=== PATIENT | male | born 1980 | race Caucasian/White ===

== ENCOUNTER 2023-07-17 09:52 | Emergency (ER) | payer OTHER, SELFPAY ==
[2023-07-17 09:56] VITALS: BP 123/92; PULSE 56; RESP 18; TEMP 36.4; O2SAT 99; BMI 26.9
--- NOTE | 2023-07-17 10:00 | XR_ITS ---
[facility] [id number] Patient Name: RAMA AQUINO MRN: [id number] date: 1980 Sex: M Assigned Patient Location: ER Current Patient Location: ER Accession/Order Number: [id number] Exam Date: 07/17/2023 10:05 Report Date: 07/17/2023 10:40 At the request of: MAURICE BRAGA Procedure: XR ankle RT min 3V STUDY: XR ankle RT min 3V, [id number] HISTORY: injury COMPARISON: None FINDINGS: No acute fracture, dislocation, or suspicious osseous lesion. No significant degenerative changes. No lucent lesion of the talar dome. XR/XR ankle RT min 3V IMPRESSION: No acute osseous abnormality. Electronically authenticated by: MARLYS ADORNO Date: 07/17/2023 10:40
--- NOTE | 2023-07-17 10:02 | ED.EXTPRO1 ---
HPI - Extremity Problem General Chief complaint: Extremity Injury, Lower Stated complaint: LOWER EXTREMITY INJURY RIGHT ANKLE Time Seen by Provider: 07/17/23 09:57 Source: patient Mode of arrival: walk-in History of Present Illness HPI Narrative: 42-year-old male presents to the emergency department for injury to his right ankle. He points to the right lateral malleolus. He twisted it lasts night when he was on the sideline of the football game and a player collided with him. No other injury was sustained. No pain in the foot or knee. The pain is moderate and worse when he walks. Related Data Home Medications Medication Instructions Recorded Confirmed No Known Home Medications 07/17/23 07/17/23 Allergies Allergy/AdvReac Type Severity Reaction Status Date / Time No Known Drug Allergies Allergy Verified 07/17/23 09:56 Review of Systems ROS Narrative A ten point review of systems is negative except as noted above. PFSH PFS Social History Smoking status: Never smoker Exam Narrative Exam Narrative: Nurses note and vital signs reviewed and patient is not hypoxic. General: The patient appears well and in no apparent distress. Patient is resting comfortably on cart. Skin: Warm, dry, no pallor noted. There is no rash noted. Head: Normocephalic, atraumatic Eye: Normal conjunctiva, no drainage Ears, Nose, Mouth, and Throat: oral mucosa is moist. Nares patent. Cardiovascular: Regular Rate and Rhythm Respiratory: Patient is in no distress, no accessory muscle use Back: non-tender, no CVA tenderness bilaterally to percussion. GI: soft and nontender Musculoskeletal: he has mild swelling over the right lateral malleolus, skin intact. No tenderness in the foot including the 5th metatarsal area. Knee nontender. Neurological: A&O, normal speech Psychiatric: Cooperative Constitutional Vital Signs, click to edit/add: Last Vital Signs Temp 97.6 F 07/17/23 09:56 Pulse 56 L 07/17/23 09:56 Resp 18 07/17/23 09:56 BP 123/92 H 07/17/23 09:56 Pulse Ox 99 07/17/23 09:56 O2 Del Method Room Air 07/17/23 09:56 Course Vital Signs Vital signs: Vital Signs Temperature 97.6 F 07/17/23 09:56 Pulse Rate 56 L 07/17/23 09:56 Respiratory Rate 18 07/17/23 09:56 Blood Pressure 123/92 H 07/17/23 09:56 Pulse Oximetry 99 07/17/23 09:56 Oxygen Delivery Method Room Air 07/17/23 09:56 Temperature 97.6 F 07/17/23 09:56 Pulse Rate 56 L 07/17/23 09:56 Respiratory Rate 18 07/17/23 09:56 Blood Pressure 123/92 H 07/17/23 09:56 Pulse Oximetry 99 07/17/23 09:56 Oxygen Delivery Method Room Air 07/17/23 09:56 MDM - Extremity (Nontraumatic) MDM Narrative Medical decision making narrative: x-ray per radiologist shows no acute findings. Nate wrap and air splint applied, application checked by me and found be appropriate, he is neurovascularly intact. He has crutches at home if he needs them. Treatment diagnosis and follow-up were discussed with the patient. Differential Diagnosis Differential diagnosis: Likely other (ankle sprain, ankle fracture) Imaging Data ankle x-ray: Radiologist's impression: Procedure: XR ankle RT min 3V STUDY: XR ankle RT min 3V, [id number] HISTORY: injury COMPARISON: None FINDINGS: No acute fracture, dislocation, or suspicious osseous lesion. No significant degenerative changes. No lucent lesion of the talar dome. IMPRESSION: No acute osseous abnormality. Electronically authenticated by: MARLYS ADORNO Date: 07/17/2023 10:40 Discharge Plan Discharge Chief Complaint: Extremity Injury, Lower Clinical Impression: Ankle sprain Patient Disposition: Home, Self-Care Time of Disposition Decision: 10:49 Condition: Good Mode of Transportation: Private Vehicle Prescriptions / Home Meds: No Action No Known Home Medications Instructions: Ankle Sprain (ED), Ankle Stirrup Splint (ED) Stand Alone Forms: Portal Instructions Referrals: GURPREET LAZO [Primary Care Provider] - 1 week
== END 2023-07-17 10:58 | disposition home or self-care (01) ==
PROVIDERS: Emergency Provider Emergency Medicine; PCP Family Medicine
DX: S93.401A Sprain of unspecified ligament of right ankle, initial encounter (principal); X50.1XXA Overexertion from prolonged static or awkward postures, initial encounter; Y93.61 Activity, american tackle football
CPT/HCPCS: 73610; 99283

== ENCOUNTER 2024-12-29 09:50 | Emergency (ER) | payer OTHER, SELFPAY ==
[2024-12-29 09:54] VITALS: BP 140/83; PULSE 71; TEMP 36.6; O2SAT 100; BMI 25.1
--- NOTE | 2024-12-29 10:07 | ED.ABDPAIN1 ---
HPI - Abdominal Pain General Chief Complaint: Abdominal Pain Stated Complaint: abdominal pain Time Seen by Provider: 12/29/24 09:57 Source: patient Mode of arrival: walk-in Limitations: no limitations History of Present Illness HPI narrative: The patient is a 44-year-old male who have no significant known past medical history, to the ER with almost 7 days history of having epigastric discomfort, the patient denies any nausea at the moment but he did had some episodes of nausea throughout the last few days, pain is not radiating with mostly epigastric to the mid abdomen and it is crampy-like. The patient mentioned that he has been using some ibuprofen and Tylenol for the last few days because he thinks that will help him control the pain, but also has been exposed to his son who had viral illness symptoms No diarrhea although he did mention that his stool today with little bit loose Related Data Previous Rx's ?Medication ?Instructions ?Recorded famotidine 20 mg tablet (Pepcid) 20 mg PO BID #10 tabs 12/29/24 pantoprazole 40 mg tablet,delayed 40 mg PO DAILY 4 weeks #28 tabs 12/29/24 release (Protonix) sucralfate 100 mg/mL oral 1 g (10 mL) PO TID 7 days #210 mL 12/29/24 suspension Allergies Allergy/AdvReac Type Severity Reaction Status Date / Time No Known Drug Allergies Allergy Verified 12/29/24 09:56 Review of Systems ROS Status of ROS 10 or more systems reviewed and unremarkable except as noted in history and below [facility] Medical History (Updated 12/29/24 @ 11:18 by Verónica Ramsay MD) No active medical problems Social History Smoking status: Never smoker Little interest or pleasure in doing things: not at all Feeling down, depressed, or hopeless: not at all Exam Narrative Exam Narrative: Nurses notes and vital signs reviewed and patient is not hypoxic. General: Well-appearing and in no apparent distress. Skin: Warm, dry, no pallor noted. No rash. Head: Normocephalic, atraumatic. Neck: Supple, non-tender. Eye: Pupils are equal, round and EOMI. No scleral icterus. Ears, Nose, Mouth, and Throat: TM are clear, no nasal mucosal hypertrophy. Oral mucosa is moist, no posterior oropharynx erythema, uvula is mid-line Cardiovascular: Regular Rate and Rhythm without murmur, gallop or rub. Respiratory: No accessory muscle use or respiratory distress. Lungs are clear to auscultation, no wheezing, rales or rhonchi Chest Wall: no tenderness Back: No midline thoracic or lumbar vertebral tenderness. No CVA tenderness Musculoskeletal: normal ROM, no calf or popliteal tenderness, no lower extremity edema/swelling GI: Abdomen is soft, non-distended. Normal bowel sounds. No masses appreciated. Constitutional Vital Signs, click to edit/add: Last Vital Signs Temp 98 F 12/29/24 09:54 Pulse 66 12/29/24 11:36 Resp 18 12/29/24 11:36 BP 136/83 12/29/24 11:36 Pulse Ox 100 12/29/24 11:36 O2 Del Method Room Air 12/29/24 11:36 Course Vital Signs Vital signs: Vital Signs Temperature 98 F 12/29/24 09:54 Pulse Rate 71 12/29/24 09:54 Respiratory Rate 20 12/29/24 09:54 Blood Pressure 140/83 12/29/24 09:54 Pulse Oximetry 100 12/29/24 09:54 Oxygen Delivery Method Room Air 12/29/24 09:54 Temperature 98 F 12/29/24 09:54 Pulse Rate 66 12/29/24 11:36 Respiratory Rate 18 12/29/24 11:36 Blood Pressure 136/83 12/29/24 11:36 Pulse Oximetry 100 12/29/24 11:36 Oxygen Delivery Method Room Air 12/29/24 11:36 MDM - Abdominal Pain MDM Narrative Medical decision making narrative: The patient CBC and chemistry showed no acute pathology His presentation mostly second to gastritis he was instructed about soft liquid diet for the next few days Pepcid and Protonix started The patient also was started on sucralfate He was instructed about the importance of avoiding using NSAIDs right now Patient referred to GI as outpatient The patient is to follow up with primary care physician in next 2-3 days or to return to the emergency department should any of the signs or symptoms worsen or new symptoms develop. The patient agrees with the following Diagnosis and Treatment plan and the patient will be discharged home. Lab Data Labs: Lab Results 12/29/24 12/29/24 Range/Units 10:13 10:15 WBC 7.3 (4.0-11.0) 10^3/uL RBC 4.98 (4.70-6.10) 10^6/uL Hgb 15.9 (14.0-18.0) g/dL Hct 44.5 (42.0-54.0) % MCV 89.4 (80.0-94.0) fL MCH 31.9 (25.9-34.0) pg MCHC 35.7 H (29.9-35.2) g/dL RDW 11.0 (11.0-15.0) % Plt Count 206 (150-450) 10^3/uL MPV 9.6 (9.5-13.5) fL Neut % (Auto) 75.1 H (43.0-75.0) % Lymph % (Auto) 16.1 L (20.5-60.0) % [place] % (Auto) 7.5 (1.7-12.0) % Eos % (Auto) 0.7 L (0.9-7.0) % Baso % (Auto) 0.3 (0.2-2.0) % Neut # (Auto) 5.5 (1.4-6.5) 10^3/uL Lymph # (Auto) 1.2 (1.2-3.8) 10^3/uL [place] # (Auto) 0.6 (0.3-0.8) 10^3/uL Eos # (Auto) 0.1 (0.0-0.7) 10^3/uL Baso # (Auto) 0.0 (0.0-0.1) 10^3/uL Abs Immat Gran (auto) 0.02 (0.00-0.03) 10^3/uL Imm/Tot Granulo (auto) 0.3 (0.0-0.5) % Sodium 138 (136-145) mmol/L Potassium 4.3 (3.5-5.1) mmol/L Chloride 102 (98-107) mmol/L Carbon Dioxide 25.8 (21.0-32.0) mmol/L Anion Gap 14.5 BUN 16.0 (7.0-18.0) mg/dL Creatinine 0.89 (0.70-1.30) mg/dL Est GFR ( Amer) >60 (>=60 mL/min/1.73m^2) Est GFR (Non-Af Amer) >60 (>=60 mL/min/1.73m^2) BUN/Creatinine Ratio 18.0 Glucose 90 (74-106) mg/dL Calcium 9.2 (8.5-10.1) mg/dL Total Bilirubin 0.6 (0.2-1.0) mg/dL AST 28 (15-37) U/L ALT 27 (16-63) U/L Alkaline Phosphatase 67 (46-116) U/L Total Protein 7.6 (6.4-8.2) g/dL Albumin 3.7 (3.4-5.0) g/dL Globulin 3.9 g/dL Albumin/Globulin Ratio 0.9 Lipase 29.0 (16.0-77.0) U/L Influenza Type A Ag Negative Influenza Type B Ag Negative SARS-CoV-2 Ag (CV2AG) Negative (NEGATIVE) Discharge Plan Discharge Chief Complaint: Abdominal Pain Clinical Impression: Gastritis Patient Disposition: Home, Self-Care Time of Disposition Decision: 11:18 Condition: Good Prescriptions / Home Meds: New famotidine [Pepcid] 20 mg tablet 20 mg PO BID Qty: 10 0RF pantoprazole [Protonix] 40 mg tablet,delayed release (DR/EC) 40 mg PO DAILY 28 Days Qty: 28 0RF sucralfate 100 mg/mL suspension 1 g PO TID 7 Days Qty: 210 0RF Print Language: Occitan Instructions: Gastritis (DC), Diet for Stomach Ulcers and Gastritis (ED) Referrals: MONIQUE RIOS [Physician] - 1 week GURPREET LAZO [Primary Care Provider] - 1 week Discharge Date/Time: 12/29/24 11:37
[2024-12-29] MEDS: FAMOTIDINE/PF 20 MG/2 ML VIAL IV (10:18)
[2024-12-29 10:25] LABS: Basophils Percent Auto 0.3 % (0.2-2.0); Eosinophils Absolute Auto 0.1 10^3/uL (0.0-0.7); Eosinophils Percent Auto 0.7 % (0.9-7.0); Hematocrit 44.5 % (42.0-54.0); Hemoglobin 15.9 g/dL (14.0-18.0); Immature Granulocytes Abs Auto 0.02 10^3/uL (0.00-0.03); Immature Granulocytes Pct Auto 0.3 % (0.0-0.5); Lymphocytes Absolute Auto 1.2 10^3/uL (1.2-3.8); Lymphocytes Percent Auto 16.1 % (20.5-60.0); Mean Corpuscular HGB Conc 35.7 g/dL (29.9-35.2); Mean Corpuscular Hemoglobin 31.9 pg (25.9-34.0); Mean Corpuscular Volume 89.4 fL (80.0-94.0); Mean Platelet Volume 9.6 fL (9.5-13.5); Monocytes Absolute Auto 0.6 10^3/uL (0.3-0.8); Monocytes Percent Auto 7.5 % (1.7-12.0); Neutrophils Absolute Auto 5.5 10^3/uL (1.4-6.5); Neutrophils Percent Auto 75.1 % (43.0-75.0); Platelet Count 206 10^3/uL (150-450); Red Blood Count 4.98 10^6/uL (4.70-6.10); White Blood Count 7.3 10^3/uL (4.0-11.0)
[2024-12-29 10:38] LABS: Influenza Virus A Antigen Negative; Influenza Virus B Antigen Negative; Internal Control Within Normal Limits; SARS-CoV-2 Ag NEGATIVE (NEGATIVE)
[2024-12-29 10:42] LABS: Alanine Aminotransferase 27 U/L (16-63); Albumin Globulin Ratio 0.9; Albumin Level 3.7 g/dL (3.4-5.0); Alkaline Phosphatase 67 U/L (46-116); Anion Gap 14.5; Aspartate Amino Transferase 28 U/L (15-37); Bilirubin Total 0.6 mg/dL (0.2-1.0); Calcium 9.2 mg/dL (8.5-10.1); Carbon Dioxide 25.8 mmol/L (21.0-32.0); Chloride 102 mmol/L (98-107); Estimated GFR (African America >60 (>=60 mL/min/1.73m^2); Estimated GFR (Non-African Ame >60 (>=60 mL/min/1.73m^2); Globulin 3.9 g/dL; Glucose 90 mg/dL (74-106); Potassium 4.3 mmol/L (3.5-5.1); Sodium 138 mmol/L (136-145); Total Protein 7.6 g/dL (6.4-8.2)
[2024-12-29] MEDS: lidocaine HCL 15 ML, MAG HYDROX/ALUMINUM HYD/SIMETH 30 ML, HYOSCYAMINE SULFATE 0.25 MG PO (10:59)
[2024-12-29 11:36] VITALS: BP 136/83; PULSE 66; O2SAT 100
== END 2024-12-29 11:37 | disposition home or self-care (01) ==
PROVIDERS: Emergency Provider Emergency Medicine; PCP Family Medicine
DX: K29.70 Gastritis, unspecified, without bleeding (principal)
CPT/HCPCS: 36415; 80053; 83690; 85025; 87804; 87811; 96374; 99284; J3490